=== PATIENT | male | born 1950 | race Caucasian/White ===

== ENCOUNTER 2019-03-16 11:22 | Emergency (ER) | payer MEDICARE, OTHER ==
[~2019-03-16] VITALS: Wt 80.0 kg
--- NOTE | 2019-03-16 12:50 | ERD ---
ER Documentation Chief Complaint Chief Complaint sent by pmd for paracenthesis HPI This is a 68-year-old man with a history of liver disease who is here for therapeutic paracentesis. He said his primary care doctor sent him here for this procedure. The patient has a appointment with him later this afternoon. He says he has gradual abdominal swelling and has infrequent paracentesis but it is necessary at this time. He has no abdominal pain, nausea vomiting diarrhea or fever. He has no shortness of breath at rest ROS All systems reviewed and are negative except as per history of present illness. PMhx/Soc History of Surgery: Yes (hernia) Anesthesia Reaction: No Hx Respiratory Disorders: No Hx Cardiac Disorders: Yes (htn) Hx Psychiatric Problems: No Hx Miscellaneous Medical Probl: Yes (dm, colon ca) Hx Alcohol Use: No Hx Substance Use: No Hx Tobacco Use: No Smoking Status: Never smoker FmHx Family History: No coronary disease Physical Exam Vitals Vital Signs Date Temp Pulse Resp B/P (MAP) Pulse Ox O2 O2 Flow FiO2 Time Delivery Rate 03/16/19 98.6 94 18 143/84 99 11:26 (103) Physical Exam Const: Well-developed, well-nourished Head: Atraumatic, normocephalic Eyes: Normal Conjunctiva, PERRLA, EOMI, normal sclera, no nystagmus ENT: Normal External Ears, Nose and Mouth, moist mucus membranes. Neck: Full range of motion. No meningismus, no lymphadenopathy. Resp: Clear to auscultation bilaterally, no wheezing, rhonchi, rales Cardio: Regular rate and rhythm, no murmurs, S1 S2 present Abd: Soft, non tender x 4, distended with ascites. Normal bowel sounds, no guarding or rebound, no pulsitile abdominal masses or bruits Skin: No petechiae or rashes, no ecchymosis , no maculopapular rash Back: No midline or flank tenderness Ext: No cyanosis, or edema, FROM x 4, normal inspection, neurovascularly intact x 4 Neur: Awake and alert, STR 5/5 x 4, sensation intact x 4, no focal findings, cerebellum intact Psych: Normal Mood and Affect Results 24 hrs Current Medications Medications Dose Sig/Yesica Start Time Status Last (Trade) Ordered Route PRN Stop Time Admin Dose Reason Admin 1 tab ONCE ONCE 03/16/19 Acetaminophen PO 13:00 / 03/16/19 13:01 Hydrocodone Bitart (Viola (5)) Procedures/MDM The patient will get a therapeutic paracentesis by interventional radiology. Then will discharge him home Departure Diagnosis: Primary Impression: Ascites Ascites type: other type Qualified Codes: R18.8 - Other ascites Condition: Stable ANOOP HICKS DO Mar 16, 2019 12:50
[2019-03-16] MEDS ORDERED: HYDROCODONE/APAP (5/325) TAB PO ONE (13:00)
[2019-03-16] MEDS ORDERED: LORA1TAB PO (13:14)
[2019-03-16] MEDS ORDERED: ACET1TAB40 PO (13:14)
[2019-03-16] MEDS ORDERED: CLON-379 PO (13:14)
[2019-03-16] MEDS ORDERED: FURO40TA4 PO (13:15)
[2019-03-16] MEDS ORDERED: ENAL10TA PO (13:15)
[2019-03-16] MEDS ORDERED: AMLO-147 PO (13:16)
[2019-03-16] MEDS ORDERED: CARV6.2579 PO (13:16)
[2019-03-16] MEDS ORDERED: RANI150T5 PO (13:16)
[2019-03-16] MEDS ORDERED: SPIR25TA PO (13:17)
[2019-03-16] MEDS ORDERED: METF100010 PO (13:17)
[2019-03-16] MEDS ORDERED: NOVO3I SC (13:18)
[2019-03-16] MEDS ORDERED: LIDOCAINE 1% (MPF) 5 ML VIAL ONE (14:34)
[2019-03-16 14:50] VITALS: BP 98/66; PULSE 85; RESP 18
== END 2019-03-16 15:03 | disposition home or self-care (01) ==
LOC: E/R 11:22
DX: R18.8 Other ascites (principal); I10 Essential (primary) hypertension; E11.9 Type 2 diabetes mellitus without complications; Z85.038 Personal history of other malignant neoplasm of large intestine

== ENCOUNTER 2019-03-24 21:56 | Emergency (ER) | payer MEDICARE, OTHER ==
[~2019-03-24] VITALS: Wt 72.7 kg
[~2019-03-24 21:56] MED LIST: ACET1TAB40 PO; AMLO-147 PO; CARV6.2579 PO; CLON-379 PO; ENAL10TA PO; FURO40TA4 PO; LORA1TAB PO; METF100010 PO; NOVO3I SC; RANI150T5 PO; SPIR25TA PO
[2019-03-24 22:11] VITALS: BP 105/65; PULSE 82; RESP 20
[2019-03-24] MEDS ORDERED: POLY17PO6 PO (23:44)
[2019-03-24] MEDS ORDERED: IBUP-1542 PO (23:44)
--- NOTE | 2019-03-25 02:40 | ERD ---
ER Documentation Chief Complaint Chief Complaint PMD ref for: painful hemorrhoids 'popped out' x3d. NO BLEED. HPI This is a 68-year-old male patient who presents to the emergency room with complaint of "hemorrhoid." Patient has history of colon cancer and liver cancer and has visible ascites, patient states he was just tapped and size of his abdomen and lower extremities are normal for him. He states he has painful bowel movements with hard stools. He is not taking any stool softeners. He is asking for pain medication although he already has prescription strength Anusol and is using Preparation H suppositories. Denies bleeding, denies melena, denies fevers, denies abdominal pain. Last BM was yesterday with a small hard stool. States he saw his oncologist 2 days ago and discussed constipation and oncologist stated they constipation had nothing to do with his colon cancer. Denies ever having any surgery in his abdomen or colon. ROS All systems reviewed and are negative except as per history of present illness. Medications Home Meds Active Scripts Ibuprofen* (Motrin*) 600 Mg Tab, 600 MG PO Q6 for pain for 10 Days, #30 TAB Prov:DIONNE MOELLER NP 03/24/19 Polyethylene Glycol* (Miralax*) 17 Gm Powd.pack, 17 GM PO DAILY PRN for daily, #30 Prov:DIONNE MOELLER NP 03/24/19 Reported Medications Insulin Aspart* (Novolog Insulin Pen*) 100 Unit/Ml Soln, 8 UNIT SC WITH MEALS, EA 03/16/19 Spironolactone* (Aldactone*) 25 Mg Tablet, 25 MG PO NEEDED, #30 TAB 03/16/19 Metformin Hcl* (Metformin Hcl*) 1,000 Mg Tablet, 1000 MG PO WITH BREAKFAST, #30 TAB 03/16/19 Carvedilol* (Carvedilol*) 6.25 Mg Tablet, 6.25 MG PO DAILY, #60 TAB 03/16/19 Amlodipine Besylate* (Amlodipine Besylate*) 10 Mg Tablet, 10 MG PO NEEDED, #30 TAB 03/16/19 Ranitidine Hcl* (Ranitidine Hcl*) 150 Mg Tablet, 150 MG PO Q12, #60 TAB 03/16/19 Furosemide* (Furosemide*) 40 Mg Tablet, 40 MG PO NEEDED, TAB 03/16/19 Enalapril Maleate* (Enalapril Maleate*) 10 Mg Tablet, 10 MG PO DAILY, TAB 03/16/19 Clonidine Hcl* (Clonidine Hcl*) 0.1 Mg Tab, 0.1 MG PO NEEDED, TAB 03/16/19 Acetaminophen with Codeine (Acetaminophen-Cod #3 Tablet) 1 Each Tablet, 1 TAB PO Q6H PRN for NEEDED, #7 TAB 03/16/19 Lorazepam* (Lorazepam*) 1 Mg Tablet, 1 MG PO HS PRN for ANXIETY, #30 TAB 03/16/19 Allergies Allergies: Coded Allergies: No Known Allergy (Unverified , 03/16/19) PMhx/Soc History of Surgery: Yes (hernia) Anesthesia Reaction: No Hx Respiratory Disorders: No Hx Cardiac Disorders: Yes (htn) Hx Psychiatric Problems: No Hx Miscellaneous Medical Probl: Yes (dm, colon ca) Hx Alcohol Use: No Hx Substance Use: No Hx Tobacco Use: No Smoking Status: Never smoker Physical Exam Vitals Vital Signs Date Temp Pulse Resp B/P (MAP) Pulse Ox O2 O2 Flow FiO2 Time Delivery Rate 03/24/19 96.9 82 20 105/65 98 22:11 (78) Physical Exam Const: No acute distress Head: Atraumatic Eyes: Normal Conjunctiva, PERRL ENT: Normal External Ears, Nose and Mouth. Neck: Full range of motion. No meningismus. Resp: Clear to auscultation bilaterally Cardio: Regular rate and rhythm, no murmurs Abd: Soft, non tender, non distended. Normal bowel sounds Skin: No petechiae or rashes Back: No midline or flank tenderness Rectum: multiple piles and flat skin tags, no external hemorrhoid, no bleeding, soft brown stool at rectum Ext: No cyanosis, or edema Neur: Awake and alert Psych: Normal Mood and Affect Procedures/MDM This is a 68-year-old male patient who presents to the emergency room with complaint of pain with defecation. Patient denies bleeding to indicate external hemorrhoids or internal hemorrhoids. Patient states he does not have blood on toilet paper or streaking on the stools. Complains of dry hard stool. Visual inspection of rectum indicates patient pain is a result of anal fissures. Long discussion had with patient regarding use of MiraLAX, increasing hydration, increasing fiber in his diet, continued use of Preparation H suppositories and previously prescribed Anusol. Patient was encouraged to follow-up with his oncologist as this constipation could be related to his colon cancer. There are no signs of peritonitis, rectal abscess, bowel obstruction. or other life-threatening or serious etiology. The patient appears stable for discharge and has been instructed to return immediately if the symptoms worsen in any way, or in 8-12 hours if not improved for re-evaluation. The patient has been instructed to return if the symptoms worsen or change in any way. Departure Diagnosis: Primary Impression: Anal fissure Condition: Stable Patient Instructions: Anal Fissure (Child), Constipation (Adult) Referrals: [facility] Additional Instructions: Thank you very much for allowing us to participate in your care. Your health and safety is our top priority at [facility]. Call your primary care doctor TOMORROW for an appointment during the next 2-4 days and bring all the information and medications prescribed. Have prescriptions filled and follow precisely the directions on the label. If the symptoms get worse and your provider is unavailable, return to the Emergency Department immediately. Use of MiraLAX, increase hydration, increasing fiber in diet, continue to use of Preparation H suppositories and previously prescribed Anusol. Follow-up with his oncologist as this constipation could be related to your colon cancer. DIONNE MOELLER NP Mar 25, 2019 02:40
== END 2019-03-24 23:52 | disposition home or self-care (01) ==
LOC: FTE 21:56
DX: K60.2 Anal fissure, unspecified (principal); I10 Essential (primary) hypertension; E11.9 Type 2 diabetes mellitus without complications; Z79.4 Long term (current) use of insulin; Z85.038 Personal history of other malignant neoplasm of large intestine; Z85.05 Personal history of malignant neoplasm of liver
CPT/HCPCS: 99284